=== PATIENT | female | born 1950 | race Caucasian/White ===

== ENCOUNTER → 2016-09-10 | Outpatient (CLI) | payer MEDICARE, OTHER | LOC: RAD 16:19 | DX: J06.9 Acute upper respiratory infection, unspecified (principal) | CPT/HCPCS: 71020 ==

== ENCOUNTER → 2016-12-12 | Outpatient (CLI) | payer MEDICARE, OTHER | LOC: US 09:39 | DX: R05 Cough (principal); R94.5 Abnormal results of liver function studies; Z90.49 Acquired absence of other specified parts of digestive tract; K76.0 Fatty (change of) liver, not elsewhere classified | CPT/HCPCS: 71250; 76705 ==

== ENCOUNTER → 2020-09-28 | Outpatient (CLI) | payer MEDICARE, OTHER | LOC: RAD 16:27 | DX: R05 Cough (principal) | CPT/HCPCS: 71046 ==

== ENCOUNTER → 2021-01-30 | Outpatient (CLI) | payer MEDICARE, OTHER | LOC: EXRD 09:33 | DX: K76.0 Fatty (change of) liver, not elsewhere classified (principal) | CPT/HCPCS: 76700 ==

== ENCOUNTER → 2021-03-30 | Outpatient (CLI) | payer MEDICARE, OTHER | LOC: RAD 13:43 | DX: M50.30 Other cervical disc degeneration, unspecified cervical region (principal) | CPT/HCPCS: 72040 ==

== ENCOUNTER → 2021-09-26 | Outpatient (CLI) | payer MEDICARE, OTHER | LOC: KOH-I 09:46 | DX: K76.0 Fatty (change of) liver, not elsewhere classified (principal); Z90.49 Acquired absence of other specified parts of digestive tract | CPT/HCPCS: 76700 ==

== ENCOUNTER → 2021-11-21 | Outpatient (CLI) | payer MEDICARE, OTHER | LOC: RAD 12:46 | DX: M25.50 Pain in unspecified joint (principal) | CPT/HCPCS: 73110; 73130 ==